=== PATIENT | male | born 1950 | race Caucasian/White ===

== ENCOUNTER → 2016-10-10 | Outpatient (REF) | payer MEDICARE, OTHER | LOC: M LAB REF 14:59 | PROVIDERS: ATTEND Internal Medicine Medical Oncology | DX: C61 Malignant neoplasm of prostate (principal) ==

== ENCOUNTER → 2016-11-14 | Outpatient (REF) | payer MEDICARE, OTHER | LOC: M LAB REF 17:01 | PROVIDERS: ATTEND Internal Medicine Medical Oncology | DX: C61 Malignant neoplasm of prostate (principal) ==

== ENCOUNTER → 2017-01-12 | Outpatient (REF) | payer MEDICARE, OTHER | LOC: M LAB REF 18:44 | PROVIDERS: ATTEND Internal Medicine Medical Oncology | DX: C61 Malignant neoplasm of prostate (principal) ==

== ENCOUNTER → 2017-01-24 | Outpatient (CLI) | payer MEDICARE, OTHER ==
[~2017-01-24] VITALS: Ht 172.7 cm; Wt 96.6 kg
[~2017-01-24] MED LIST: ECOT81TA5 PO; HYZA50TA2 PO; LIDOCAINE 2% INJ 100 MG/5 ML SDV (FOR ANES.) As Ordered ONE; LUPR30IN IM; NS 1,000 ML IV SCH; PROPOFOL 200 MG/20 ML VIAL As Ordered ONE; SIMV40TA2 PO; VITA-112 PO
--- NOTE | 2017-01-24 09:15 | ROOR ---
Patient Name: Aristides Parker Procedure Date: 01/24/2017 8:50 AM Date of : 1950 Age: 67 Room: [facility] Gender: Male Note Status: Finalized Procedure: Colonoscopy Indications: High risk colon cancer surveillance: Personal history of colonic polyps, Last colonoscopy 5 years ago Providers: Wenceslao FRISA MD Referring MD: VILMA CASTANON MD Requesting Provider: Medicines: Monitored Anesthesia Care Complications: No immediate complications. Procedure: Pre-Anesthesia Assessment: - The heart rate, respiratory rate, oxygen saturations, blood pressure, adequacy of pulmonary ventilation, and response to care were monitored throughout the procedure. The Colonoscope was introduced through the anus and advanced to the cecum, identified by appendiceal orifice and ileocecal valve. The colonoscopy was performed without difficulty. The patient tolerated the procedure well. The quality of the bowel preparation was good. Findings: The perianal and digital rectal examinations were normal. Four sessile polyps were found in the ascending colon. The polyps were diminutive in size. These polyps were removed with a cold snare. Resection and retrieval were complete. A few angioectasias without bleeding were found in the distal rectum. The exam was otherwise without abnormality. Impression: - Four diminutive polyps in the ascending colon, removed with a cold snare. Resected and retrieved. - A few rectal angioectasias/mild radiation proctitis. - The colon examination was otherwise normal. Recommendation: - Repeat colonoscopy in 3 years for surveillance. Wenceslao Frias MD Wenceslao FRIAS MD 01/24/2017 9:15:21 AM This report has been signed electronically. Number of Addenda: 0 Note Initiated On: 01/24/2017 8:50 AM Estimated Blood Loss: Estimated blood loss: none.
[2017-01-24 09:30] VITALS: BP 137/77
== END | disposition home or self-care (01) ==
LOC: M OPP 07:57
PROVIDERS: ATTEND Internal Medicine Gastroenterology
DX: Z12.11 Encounter for screening for malignant neoplasm of colon (principal); D12.2 Benign neoplasm of ascending colon; K55.20 Angiodysplasia of colon without hemorrhage; K62.7 Radiation proctitis; I10 Essential (primary) hypertension; E78.5 Hyperlipidemia, unspecified; M19.90 Unspecified osteoarthritis, unspecified site; R06.83 Snoring; Z92.3 Personal history of irradiation; Z87.891 Personal history of nicotine dependence; Z79.899 Other long term (current) drug therapy; Z88.8 Allergy status to other drugs, medicaments and biological substances; Z85.46 Personal history of malignant neoplasm of prostate

== ENCOUNTER → 2017-03-22 | Outpatient (REF) | payer MEDICARE, OTHER ==
[~2017-03-22] MED LIST changes: -LIDOCAINE 2% INJ 100 MG/5 ML SDV (FOR ANES.) As Ordered ONE; -NS 1,000 ML IV SCH; -PROPOFOL 200 MG/20 ML VIAL As Ordered ONE
== END ==
LOC: M LAB REF 16:29
PROVIDERS: ATTEND Internal Medicine Medical Oncology
DX: C61 Malignant neoplasm of prostate (principal)

== ENCOUNTER → 2017-05-22 | Outpatient (REF) | payer MEDICARE, OTHER | LOC: M LAB REF 13:26 | PROVIDERS: ATTEND Internal Medicine Medical Oncology | DX: C61 Malignant neoplasm of prostate (principal) ==

== ENCOUNTER → 2017-07-24 | Outpatient (REF) | payer MEDICARE, OTHER | LOC: M LAB REF 14:13 | PROVIDERS: ATTEND Internal Medicine Medical Oncology | DX: C61 Malignant neoplasm of prostate (principal) ==

== ENCOUNTER → 2017-12-07 | Outpatient (REF) | payer MEDICARE, OTHER ==
[2017-12-07 17:58] LABS: PROSTATIC SPECIFIC AG MONITOR 6.05 NG/ML (< 4.0)
== END ==
LOC: M LAB REF 16:37
DX: C61 Malignant neoplasm of prostate (principal)
CPT/HCPCS: 84153

== ENCOUNTER → 2018-04-11 | Outpatient (REF) | payer MEDICARE, OTHER ==
[2018-04-11 19:06] LABS: TESTOSTERONE 17 NG/DL (241-827)
== END ==
LOC: M LAB REF 17:43
DX: C61 Malignant neoplasm of prostate (principal)
CPT/HCPCS: 84403

== ENCOUNTER → 2018-05-08 | Outpatient (CLI) | payer MEDICARE, OTHER ==
[~2018-05-08] MED LIST changes: -ECOT81TA5 PO; +GASTROGRAFIN SOLUTION 30ML (Q9963) As Ordered; -HYZA50TA2 PO; +ISOVUE-370 76% 100ML VIAL (Q9967) As Ordered; -LUPR30IN IM; -SIMV40TA2 PO; -VITA-112 PO
== END ==
LOC: M RAD 08:22
DX: R97.20 Elevated prostate specific antigen [PSA] (principal); Z85.46 Personal history of malignant neoplasm of prostate; K44.9 Diaphragmatic hernia without obstruction or gangrene; M51.34 Other intervertebral disc degeneration, thoracic region; M13.0 Polyarthritis, unspecified; K76.89 Other specified diseases of liver; N20.0 Calculus of kidney; N28.1 Cyst of kidney, acquired; I77.811 Abdominal aortic ectasia; R59.0 Localized enlarged lymph nodes; K40.20 Bilateral inguinal hernia, without obstruction or gangrene, not specified as recurrent
CPT/HCPCS: Q9963

== ENCOUNTER → 2018-08-21 | Outpatient (CLI) | payer MEDICARE, OTHER | LOC: M PLARAD 07:51 | DX: C61 Malignant neoplasm of prostate (principal) | CPT/HCPCS: 78815 ==

== ENCOUNTER → 2020-02-25 | Outpatient (CLI) | payer MEDICARE, OTHER ==
[~2020-02-25] MED LIST changes: +D 202000 PO; +ECOT81TA5 PO; -GASTROGRAFIN SOLUTION 30ML (Q9963) As Ordered; +GASTROGRAFIN SOLUTION 30ML (Q9963) As Ordered ONE; +HYZA50TA2 PO; -ISOVUE-370 76% 100ML VIAL (Q9967) As Ordered; +ISOVUE-370 76% 100ML VIAL As Ordered ONE; +LUPR30IN IM; +SIMV40TA20 PO; +TOVI8TAB PO; +VITA-112 PO; +XTAN40CA PO
--- NOTE | 2020-02-25 12:40 | REP ---
CT CHEST WITH IV CONTRAST: TECHNIQUE: Axial contrast-enhanced images from the thoracic inlet to the upper abdomen using 100 mL Isovue-370 intravenous contrast material with multiplanar reformations. COMPARISON: 05/08/2018 There are scattered fibroatelectatic change bilaterally in the lungs with no evidence of suspicious nodular opacity. There is no evidence of axillary, mediastinal, or hilar adenopathy. The heart is not significantly enlarged. There is no pleural or pericardial effusion. There is a large hiatal hernia. There is no aneurysm or dissection of the thoracic aorta. There are mild degenerative changes of the spine with no definite bone lesion identified. IMPRESSION: Mild chronic findings with no evidence of acute infiltrate, pulmonary nodule or lymphadenopathy. Electronically Signed by Henri Thompson MD 02/25/2020 01:43 P
--- NOTE | 2020-02-25 14:45 | REP ---
CT ABDOMEN AND PELVIS WITH ORAL AND IV CONTRAST: COMPARISON: 05/08/2018. A few small cysts are scattered throughout the liver. No suspicious enhancing mass is seen. The gallbladder is grossly unremarkable. There is no biliary dilatation. There appears to be a duodenal diverticulum. The spleen is normal in size with no intrinsic abnormality. No adrenal mass or pancreatic mass is seen. There is a tiny pancreatic calcification present. A staghorn calculus is again seen in the right kidney. Scattered cortical scarring is seen bilaterally. There are small bilateral renal cysts again noted as seen on the prior study. There is no hydroureteronephrosis. There is mild ectasia of the distal abdominal aorta with moderate atherosclerotic calcifications. There is no evidence of abdominal or pelvic adenopathy. There is mild thickening of the bladder wall. There are small bilateral inguinal hernias containing fat. There is sigmoid diverticulosis without evidence of acute diverticulitis. There are degenerative changes of the spine. There is a stable sclerotic density in the superior medial right iliac bone. IMPRESSION: Right renal staghorn calculus again noted as well as small bilateral renal cysts. There are tiny cysts in the liver. No suspicious mass or adenopathy in the abdomen or pelvis. Electronically Signed by Henri Thompson MD 02/25/2020 02:56 P
--- NOTE | 2020-02-25 15:42 | REP ---
REASON: History of prostate carcinoma. COMPARISON: Latest prior 05/08/2018. After the intravenous administration of 22.0 millicuries of technetium 99m MDP, a total body bone scan was obtained. There is a degenerative type uptake pattern seen in the shoulders, elbows, wrists, hips, knees, ankles and feet status quo. Degenerative type uptake pattern also seen in the sternoclavicular joint status quo. No abnormal focal increased radionuclide accumulation is seen in the imaged axial or appendicular skeleton that would be consistent with metastatic disease. IMPRESSION: No change from the prior exam. Degenerative type uptake patterns as described above without compelling evidence for metastatic disease. Electronically Signed by Jim Coleman DO 02/25/2020 04:05 P
== END ==
LOC: M RAD 07:52
PROVIDERS: ATTEND Internal Medicine Hematology
DX: C61 Malignant neoplasm of prostate (principal); K44.9 Diaphragmatic hernia without obstruction or gangrene; N20.0 Calculus of kidney; N28.1 Cyst of kidney, acquired; K76.89 Other specified diseases of liver
CPT/HCPCS: 71260; 74177; 78306; A9503; Q9963; Q9967

== ENCOUNTER 2020-05-01 14:15 | Day surgery (SDC) | payer MEDICARE, OTHER ==
[~2020-05-01 14:15] MED LIST changes: -GASTROGRAFIN SOLUTION 30ML (Q9963) As Ordered ONE; -ISOVUE-370 76% 100ML VIAL As Ordered ONE; +LIDOCAINE 2% 100MG/5ML SDV (FOR ANES.) As Ordered ONE; +SIMV20TA22 PO; +propofoL 200 MG/20 ML VIAL As Ordered ONE
[2020-05-01] MEDS ORDERED: LIDOCAINE 2% 100MG/5ML SDV (FOR ANES.) As Ordered ONE (14:42)
[2020-05-01] MEDS ORDERED: propofoL 200 MG/20 ML VIAL As Ordered ONE (14:42)
[2020-06-04] MEDS ORDERED: AMLO1TAB24 PO (14:17)
--- NOTE | 2020-06-10 11:27 | ROOR ---
Patient Name: Aristides Parker Procedure Date: 05/01/2020 8:31 AM Date of : 1950 Age: 70 Room: [facility] Gender: Male Note Status: Finalized Procedure: Colonoscopy Indications: High risk colon cancer surveillance: Personal history of colonic polyps Providers: Wenceslao FRIAS MD Referring MD: VILMA CASTANON MD Requesting Provider: Medicines: Monitored Anesthesia Care Complications: No immediate complications. Procedure: Pre-Anesthesia Assessment: - The heart rate, respiratory rate, oxygen saturations, blood pressure, adequacy of pulmonary ventilation, and response to care were monitored throughout the procedure. The Colonoscope was introduced through the anus and advanced to 10 cm into the ileum. The colonoscopy was performed without difficulty. The patient tolerated the procedure well. The quality of the bowel preparation was good. Findings: The perianal and digital rectal examinations were normal. Three sessile polyps were found in the sigmoid colon, ascending colon and cecum. The polyps were 5 to 8 mm in size. These polyps were removed with a cold snare. Resection and retrieval were complete. Mild sigmoid diverticulosis and small internal hemorrhoids. Mild mucosal changes were found in the distal rectum. Impression: - Three 5 to 8 mm polyps in the sigmoid colon, in the ascending colon and in the cecum, removed with a cold snare. Resected and retrieved. - Mild sigmoid diverticulosis and small internal hemorrhoids. - Mild mucosal changes were found in the distal rectum secondary to radiation proctitis. Recommendation: - Repeat colonoscopy in 3 - 5 years for surveillance. - Telephone endoscopist for pathology results in 2 weeks. - Await pathology results. Wenceslao FRIAS MD 05/01/2020 3:25:55 PM Number of Addenda: 0 Note Initiated On: 05/01/2020 8:31 AM Estimated Blood Loss: Estimated blood loss: none.
== END 2020-05-01 16:00 | disposition home or self-care (01) ==
LOC: M OPP 14:15
PROVIDERS: ATTEND Internal Medicine Gastroenterology
DX: Z12.11 Encounter for screening for malignant neoplasm of colon (principal); Z86.010 Personal history of colon polyps; D12.2 Benign neoplasm of ascending colon; D12.5 Benign neoplasm of sigmoid colon; K57.30 Diverticulosis of large intestine without perforation or abscess without bleeding; K62.7 Radiation proctitis; I10 Essential (primary) hypertension; Z79.82 Long term (current) use of aspirin; Z79.899 Other long term (current) drug therapy; Z88.8 Allergy status to other drugs, medicaments and biological substances; Z85.46 Personal history of malignant neoplasm of prostate; Z92.3 Personal history of irradiation

== ENCOUNTER → 2021-12-02 | Outpatient (CLI) | payer MEDICARE, OTHER ==
[~2021-12-02] MED LIST changes: +AMLO1TAB24 PO; -LIDOCAINE 2% 100MG/5ML SDV (FOR ANES.) As Ordered ONE; +LOKE5PAK PO; +OXYB10TA23 PO; +PRED5PAK2 PO; +VITA100093 PO; +ZYTI250T PO; -propofoL 200 MG/20 ML VIAL As Ordered ONE
== END ==
LOC: M EKG 16:40
PROVIDERS: ATTEND Specialist
DX: E87.5 Hyperkalemia (principal)

== ENCOUNTER 2022-07-01 07:09 | Emergency (ER) | payer OTHER, MEDICARE ==
[~2022-07-01 07:09] MED LIST changes: -HYZA50TA2 PO; +LOSA-532 PO; +METF500T13
[2022-07-01 07:53] LABS: BASO % 0.2 % (0.0-1.0); EOS % 0.3 % (0.0-3.0); HEMATOCRIT 42.5 % (42.0-52.0); HEMOGLOBIN 13.2 g/dl (13.5-17.5); LYMPH # 1.7 10^3/uL (1.5-5.0); LYMPH % 14.9 % (24.0-44.0); MEAN CORPUSCULAR HEMOGLOBIN 28.4 pg (27.0-33.0); MEAN CORPUSCULAR HGB CONC 31.1 g/dl (32.0-36.5); MEAN CORPUSCULAR VOLUME 91.6 fl (80.0-96.0); MONO # 0.6 10^3/uL (0.0-0.8); MONO % 5.8 % (2.0-8.0); NEUTROPHILS # 8.5 10^3/uL (1.5-8.5); PLATELET COUNT, AUTOMATED 192 10^3/uL (150-450); RED BLOOD COUNT 4.64 10^6/uL (4.30-6.10); WHITE BLOOD COUNT 11.1 10^3/uL (4.0-10.0)
[2022-07-01 08:25] LABS: CALCIUM LEVEL 8.9 MG/DL (8.8-10.2); CREATININE FOR GFR 1.33 MG/DL (0.70-1.30); POTASSIUM SERUM 3.8 MEQ/L (3.5-5.1)
[2022-07-01] MEDS ORDERED: TETANUS IMMUNE GLOBULIN (HUMAN) 250 UNITS/ML SYRINGE (J1670)(90389) IM.IMMUN ONE (09:00)
[2022-07-01] MEDS ORDERED: BOOSTRIX/ADACEL VACCINE (DIPHTH/PERTUSS/ACELL/TETANUS) 0.5ML SYR IM.IMMUN ONE (09:15)
[2022-07-01] MEDS ORDERED: PERCOCET 5MG/325MG TAB PO ONE (13:50)
[2022-07-01 16:14] VITALS: BP 149/80
== END 2022-07-01 16:17 | disposition home or self-care (01) ==
LOC: M ED 07:09 → EDBD 07:09 → M ED 16:17
DX: S22.41XA Multiple fractures of ribs, right side, initial encounter for closed fracture (principal); S32.019A Unspecified fracture of first lumbar vertebra, initial encounter for closed fracture; V48.5XXA Car driver injured in noncollision transport accident in traffic accident, initial encounter; K44.9 Diaphragmatic hernia without obstruction or gangrene; R91.8 Other nonspecific abnormal finding of lung field; I10 Essential (primary) hypertension; E78.5 Hyperlipidemia, unspecified; Z85.46 Personal history of malignant neoplasm of prostate; Z79.82 Long term (current) use of aspirin; Z88.8 Allergy status to other drugs, medicaments and biological substances

== ENCOUNTER 2023-08-01 07:07 | Day surgery (SDC) | payer MEDICARE, OTHER ==
[~2023-08-01] VITALS: Ht 172.7 cm; Wt 89.3 kg
[~2023-08-01 07:07] MED LIST changes: +FURO20TA2; +NS 1,000 ML IV ONE
[2023-08-01] MEDS ORDERED: LUPR22.5 IM (07:35)
[2023-08-01 08:40] VITALS: TEMP 96.6
[2023-08-01 09:00] VITALS: BP 151/71; O2SAT 97
== END 2023-08-01 09:10 | disposition home or self-care (01) ==
LOC: M OPP 07:07
PROVIDERS: ATTEND Internal Medicine Gastroenterology
DX: Z12.11 Encounter for screening for malignant neoplasm of colon (principal); Z86.010 Personal history of colon polyps; D12.2 Benign neoplasm of ascending colon; D12.5 Benign neoplasm of sigmoid colon; K57.30 Diverticulosis of large intestine without perforation or abscess without bleeding; K62.7 Radiation proctitis; E11.9 Type 2 diabetes mellitus without complications; Z79.02 Long term (current) use of antithrombotics/antiplatelets; Z79.52 Long term (current) use of systemic steroids; Z79.82 Long term (current) use of aspirin; Z79.84 Long term (current) use of oral hypoglycemic drugs; Z79.899 Other long term (current) drug therapy; Z88.8 Allergy status to other drugs, medicaments and biological substances

== ENCOUNTER → 2023-09-20 | Outpatient (CLI) | payer MEDICARE, OTHER ==
[~2023-09-20] MED LIST changes: +LUPR22.5 IM; -NS 1,000 ML IV ONE
== END ==
LOC: M WHC 12:32
PROVIDERS: ATTEND Specialist
DX: C61 Malignant neoplasm of prostate (principal); Z79.818 Long term (current) use of other agents affecting estrogen receptors and estrogen levels

== ENCOUNTER → 2023-12-20 | Outpatient (CLI) | payer MEDICARE, OTHER ==
[~2023-12-20] MED LIST changes: +METF-839 PO
== END ==
LOC: M ONCR 13:15
PROVIDERS: ATTEND General Practice
DX: C77.5 Secondary and unspecified malignant neoplasm of intrapelvic lymph nodes (principal); C61 Malignant neoplasm of prostate; Z71.2 Person consulting for explanation of examination or test findings; Z79.818 Long term (current) use of other agents affecting estrogen receptors and estrogen levels; Z79.84 Long term (current) use of oral hypoglycemic drugs; Z79.899 Other long term (current) drug therapy; Z88.8 Allergy status to other drugs, medicaments and biological substances; Z90.79 Acquired absence of other genital organ(s); Z92.3 Personal history of irradiation; Z98.52 Vasectomy status

== ENCOUNTER 2024-01-19 07:38 | Outpatient (RCR) | payer MEDICARE, OTHER | END 2024-01-30 | LOC: M ONCR 07:38 | PROVIDERS: ATTEND General Practice | DX: Z51.0 Encounter for antineoplastic radiation therapy (principal); C61 Malignant neoplasm of prostate; C77.5 Secondary and unspecified malignant neoplasm of intrapelvic lymph nodes ==

== ENCOUNTER → 2024-04-26 | Outpatient (CLI) | payer MEDICARE, OTHER ==
[~2024-04-26] MED LIST changes: +AMLO1TAB25 PO
== END ==
LOC: M ONCR 07:37
PROVIDERS: ATTEND General Practice
DX: C61 Malignant neoplasm of prostate (principal); Z79.82 Long term (current) use of aspirin; Z79.810 Long term (current) use of selective estrogen receptor modulators (SERMs); Z79.899 Other long term (current) drug therapy; Z87.891 Personal history of nicotine dependence; Z88.8 Allergy status to other drugs, medicaments and biological substances; Z92.3 Personal history of irradiation

== ENCOUNTER → 2024-10-29 | Outpatient (CLI) | payer MEDICARE, OTHER | LOC: M ONCR 07:41 | PROVIDERS: ATTEND General Practice | DX: C61 Malignant neoplasm of prostate (principal); C77.5 Secondary and unspecified malignant neoplasm of intrapelvic lymph nodes; Z92.3 Personal history of irradiation; Z79.818 Long term (current) use of other agents affecting estrogen receptors and estrogen levels; Z79.52 Long term (current) use of systemic steroids; Z88.8 Allergy status to other drugs, medicaments and biological substances; Z79.899 Other long term (current) drug therapy; Z79.82 Long term (current) use of aspirin; Z79.84 Long term (current) use of oral hypoglycemic drugs; Z87.891 Personal history of nicotine dependence; Z90.79 Acquired absence of other genital organ(s) ==

== ENCOUNTER → 2025-04-29 | Outpatient (CLI) | payer MEDICARE, OTHER ==
[~2025-04-29] MED LIST changes: +JARD1TAB3
== END ==
LOC: M ONCR 07:52
PROVIDERS: ATTEND General Practice
DX: C77.5 Secondary and unspecified malignant neoplasm of intrapelvic lymph nodes (principal); C61 Malignant neoplasm of prostate; Z90.79 Acquired absence of other genital organ(s); Z92.3 Personal history of irradiation; Z87.891 Personal history of nicotine dependence; Z88.8 Allergy status to other drugs, medicaments and biological substances; Z79.01 Long term (current) use of anticoagulants; Z79.52 Long term (current) use of systemic steroids; Z79.818 Long term (current) use of other agents affecting estrogen receptors and estrogen levels; Z79.82 Long term (current) use of aspirin; Z79.84 Long term (current) use of oral hypoglycemic drugs; Z79.899 Other long term (current) drug therapy